=== PATIENT | female | born 1985 | race Caucasian/White ===

== ENCOUNTER 2019-10-02 23:12 | Emergency (ER) | payer OTHER ==
[2019-10-02 23:21] VITALS: BP 146/80; PULSE 69; RESP 18; TEMP 98.3
[2019-10-02] MEDS ORDERED: HYDROCORTISONE 1% CREAM 30 GM TUBE TOPICAL STA (23:39)
[2019-10-02] MEDS ORDERED: diphenhydrAMINE 25 MG CAP PO STA (23:39)
[2019-10-02] MEDS ORDERED: predniSONE 50 MG TAB PO STA (23:39)
--- NOTE | 2019-10-02 23:41 | ED ---
Skin/Abscess/FB HPI - General Chief complaint: Skin/Abscess/Foreign Body Stated complaint: Rash Time Seen by Provider: 10/02/19 23:23 Source: patient Mode of arrival: ambulatory Limitations: no limitations - History of Present Illness Initial comments: 34-year-old female patient presents to the emergency department today for evaluation of rash to the right shoulder. Patient states that she noticed that shortly after arriving to work. Patient states the rash is very itchy. Denies any pain or drainage from the lesions. States she has a similar spot on her forearm and one on her toe. She denies any new exposures. 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 She denies any fever or chills. He is taking any medication for her symptoms. Denies any lip, tongue, or throat swelling. Denies shortness of breath. Patient denies any recent rash, chest pain, abdominal pain, nausea, vomiting, diarrhea, constipation, back pain, numbness, tingling, dizziness, weakness, hematuria, dysuria, urinary urgency, urinary frequency, headache, visual changes, or any other complaints. - Related Data Previous Rx's Medication Instructions Recorded predniSONE 50 mg PO DAILY #3 tab 10/02/19 Allergies Allergy/AdvReac Type Severity Reaction Status Date / Time dimethicone Allergy Rash/Hives Verified 10/02/19 23:22 [From A and D Emollient] glycerin Allergy Rash/Hives Verified 10/02/19 23:22 [From A and D Emollient] stearyl alcohol Allergy Rash/Hives Verified 10/02/19 23:22 [From A and D Emollient] Review of Systems ROS Statement: Those systems with pertinent positive or pertinent negative responses have been documented in the HPI. ROS Other: All systems not noted in ROS Statement are negative. Past Medical History Past Medical History: No Reported History Additional Past Medical History / Comment(s): benign abd tumor History of Any Multi-Drug Resistant Organisms: None Reported Past Surgical History: Section, Tubal Ligation Additional Past Surgical History / Comment(s): d&c, only has left ovarian and fallopian tube Past Psychological History: Depression, PTSD Smoking Status: Current every day smoker Past Alcohol Use History: Occasional Past Drug Use History: Marijuana General Exam Limitations: no limitations General appearance: alert, in no apparent distress, other (This is a well- developed, well-nourished adult female patient in no acute distress. Vital signs upon presentation are temperature 98.3F, pulse 69, respirations 18, blood pressure 146/80, pulse ox 100% on room air.) ENT exam: Present: normal exam, normal oropharynx, mucous membranes moist Respiratory exam: Present: normal lung sounds bilaterally. Absent: respiratory distress, wheezes, rales, rhonchi, stridor Cardiovascular Exam: Present: regular rate, normal rhythm, normal heart sounds. Absent: systolic murmur, diastolic murmur, rubs, gallop, clicks Neurological exam: Present: alert, oriented X3, CN II-XII intact Psychiatric exam: Present: normal affect, normal mood Skin exam: Present: warm, dry, intact, normal color, rash (Cluster of erythematous wheals noted to the right shoulder, one lesion to the right forearm, one lesion to the left great toe. Patient denied petechial, nonvesicular. No drainage. Consistent with bug bite.) Course Vital Signs 10/02/19 23:16 Temperature 98.3 F Pulse Rate 69 Respiratory 18 Rate Blood Pressure 146/80 O2 Sat by Pulse 100 Oximetry Medical Decision Making - Medical Decision Making 34-year-old female patient percents to the emergency department today for evaluation of rash to the right shoulder. Physical examination did reveal eryt hematous bumps noted to the right shoulder, one to the right forearm, and one to the left great toe. Cluster of lesions are consistent with bedbug bites. She'll be given prednisone, Benadryl, and hydrocortisone cream. She is instructed to follow-up with her primary care physician for recheck in 1-2 days. Return parameters discussed in detail. She verbalizes understanding and agrees with this plan. Disposition Clinical Impression: Bed bug bite Disposition: HOME SELF-CARE Condition: Good Instructions (If sedation given, give patient instructions): Insect Bite or Sting (ED), Bed Bugs (ED) Additional Instructions: Use cream 3 times daily as needed for symptom relief. Take Benadryl every 6 hours as needed. Complete steroid prescription in full. Follow-up through primary care physician for recheck in 1-2 days. Return to the emergency depar tment immediately for any new, worsening, or concerning symptoms. Prescriptions: predniSONE 50 mg PO DAILY #3 tab Is patient prescribed a controlled substance at d/c from ED?: No Referrals: None,Stated [Primary Care Provider] - 1-2 days Time of Disposition: 23:40
== END 2019-10-03 00:05 | disposition home or self-care (01) ==
LOC: EC 23:12
DX: R21 Rash and other nonspecific skin eruption (principal); F17.200 Nicotine dependence, unspecified, uncomplicated; Z88.8 Allergy status to other drugs, medicaments and biological substances; W57.XXXA Bitten or stung by nonvenomous insect and other nonvenomous arthropods, initial encounter
CPT/HCPCS: 99282; J7512

== ENCOUNTER 2020-06-27 06:37 | Emergency (ER) | payer OTHER ==
[2020-06-27 06:45] VITALS: TEMP 98
[2020-06-27] MEDS ORDERED: ORPHENADRINE 30 MG/ML 2 ML VIAL IVP STA (06:58)
[2020-06-27] MEDS ORDERED: SODIUM CHLORIDE 0.9% 1,000 ML IV ONE (06:58)
[2020-06-27] MEDS ORDERED: ONDANSETRON 4 MG/2 ML VIAL IVP STA (06:58)
[2020-06-27] MEDS ORDERED: DEXAMETHASONE SOD PHOSPHATE 4 MG/ML 1 ML VIAL IV STA (06:59)
--- NOTE | 2020-06-27 07:03 | ED ---
Fall HPI - General Chief Complaint: Fall Stated Complaint: Fall Time Seen by Provider: 06/27/20 06:47 Source: patient, RN notes reviewed, old records reviewed Mode of arrival: ambulatory - History of Present Illness Initial Comments: 34-year-old female presents for his from today after chief complaint of head injury yesterday at 5 AM. Patient reportedly was partying and inhaling nitrous oxide. She reports that she then passed out hitting her head on cement concrete. She went to the posterior head and neck pain. She reports that she stayed up to avoid concussion symptoms for the past 24 hours. She reports that she went to bed last night 8 AM. She woke up with significant headache and nausea. Patient states that she has had no fevers. She reports that she had 2 episodes of cold sweats this morning. She complains of a headache. - Related Data Previous Rx's Medication Instructions Recorded predniSONE 50 mg PO DAILY #3 tab 10/02/19 Meclizine [Antivert] 25 mg PO BID #12 tab 06/27/20 Ondansetron Odt [Zofran Odt] 4 mg PO Q8HR PRN #12 tab 06/27/20 Allergies Allergy/AdvReac Type Severity Reaction Status Date / Time dimethicone Allergy Rash/Hives Verified 10/02/19 23:22 [From A and D Emollient] glycerin Allergy Rash/Hives Verified 10/02/19 23:22 [From A and D Emollient] stearyl alcohol Allergy Rash/Hives Verified 10/02/19 23:22 [From A and D Emollient] Review of Systems ROS Statement: Those systems with pertinent positive or pertinent negative responses have been documented in the HPI. ROS Other: All systems not noted in ROS Statement are negative. Past Medical History Past Medical History: No Reported History Additional Past Medical History / Comment(s): benign abd tumor History of Any Multi-Drug Resistant Organisms: None Reported Past Surgical History: Section, Tubal Ligation Additional Past Surgical History / Comment(s): d&c, only has left ovarian and fallopian tube Past Psychological History: Depression, PTSD Smoking Status: Never smoker Past Alcohol Use History: Occasional Past Drug Use History: Marijuana General Exam - General Exam Comments Initial Comments: 34-year-old female. Alert and oriented General appearance: alert, in no apparent distress Head exam: Present: atraumatic, normocephalic, normal inspection Eye exam: Present: normal appearance, PERRL, EOMI. Absent: scleral icterus, conjunctival injection, periorbital swelling ENT exam: Present: normal exam, mucous membranes moist Neck exam: Present: normal inspection. Absent: tenderness, meningismus, lymphadenopathy Respiratory exam: Present: normal lung sounds bilaterally. Absent: respiratory distress, wheezes, rales, rhonchi, stridor Cardiovascular Exam: Present: regular rate, normal rhythm, normal heart sounds. Absent: systolic murmur, diastolic murmur, rubs, gallop, clicks GI/Abdominal exam: Present: soft, normal bowel sounds. Absent: distended, tenderness, guarding, rebound, rigid Extremities exam: Present: normal inspection, full ROM, normal capillary refill. Absent: tenderness, pedal edema, joint swelling, calf tenderness Back exam: Present: normal inspection Neurological exam: Present: alert, oriented X3, CN II-XII intact Expanded Patient oriented to: Present: person, place, time Speech: Present: fluid speech Cranial nerves: EOM's Intact: Normal Cerebellar function: Finger to Nose: Normal Upper motor neuron: Pronator Drift: Normal Sensory exam: Upper Extremity Light Touch: Normal, Lower Extremity Light Touch: Normal Motor strength exam: RUE: 5, LUE: 5, RLE: 5, LLE: 5 Eye Response: (4) open spontaneously Motor Response: (6) obeys commands Verbal Response: (5) oriented Jansen Total: 15 Psychiatric exam: Present: normal affect, normal mood Course Vital Signs 06/27/20 06/27/20 06:41 07:36 Temperature 98 F Pulse Rate 68 69 Respiratory 18 18 Rate Blood Pressure 137/95 110/80 O2 Sat by Pulse 100 99 Oximetry Medical Decision Making - Medical Decision Making 34-year-old female presents emergency room Janneth Perez of headache and nausea one day after hitting her head. Patient reports that she struck her head on concrete. She reports a brief episode of loss consciousness last night at that time. Patient is a 72 has no acute neurological deficits. Patient was concerned because she started vomiting this morning. Patient's computed tomography scan of the rain and C-spine reviewed and negative for acute process. There is evidence of possible sinus rhythm. Patient form of this result. Advised her to follow-up with her primary care doctor for nonemergent CT of her chest. Patient is history plan will comply. Patient was diagnosed with concussion. - Radiology Data Radiology results: report reviewed CT shows no acute intracranial normality. No acute fracture malalignment of cervical spine. Prominent soft tissue density in the partially visualized a mediastinum clear present prominent thymic remnant. Recommend a contrast MRI of the chest to confirm exclude any other anterior mediastinal mass. Disposition Clinical Impression: Concussion, Cervical thymic remnant Disposition: HOME SELF-CARE Condition: Good Instructions (If sedation given, give patient instructions): Concussion (ED) Additional Instructions: Please use medication as discussed. Please follow up with family doctor if symptoms have not improved over the next two days. Follow up with CT finding of thymus. Please return to the emergency room if your symptoms increase or worsen or for any other concerns. Prescriptions: Meclizine [Antivert] 25 mg PO BID #12 tab Ondansetron Odt [Zofran Odt] 4 mg PO Q8HR PRN #12 tab PRN Reason: Nausea Is patient prescribed a controlled substance at d/c from ED?: No Referrals: Paresh Montez MD [Primary Care Provider] - 1-2 days Time of Disposition: 08:24
--- NOTE | 2020-06-27 07:34 | CT ---
EXAMINATION TYPE: CT brain betty simms con DATE OF EXAM: 06/27/2020 COMPARISON: None HISTORY: 34-year-old female pain after Fall, struck back of head CT DLP: 1597.4 mGycm Automated exposure control for dose reduction was used. Technique: Examination of the head was done in axial plane without intravenous contrast. Coronal and sagittal reconstructions performed. CT of the cervical spine was obtained in axial plane without intravenous injection of contrast mater ial. Coronal and sagittal reformatted images were obtained from the axial views for evaluation of f ractures, spinal alignment and canal. FINDINGS: Head: There is no evidence of acute intracranial hemorrhage, acute ischemic changes, mass, mass-effect, or extra-axial fluid collection. There is no effacement of cerebral sulci or basal subarachnoid cister ns. There is no hydrocephalus. There is no midline shift. Armijo-white matter distinction is preserv ed. Paranasal sinuses and mastoid air cells well pneumatized. Orbits and globes are intact. Cervical spine: Small amount of dependent debris within the mid to lower trachea. Anterior mediastinal soft tissue pa rtially visualized, refer to axial image 110. No craniocervical junction abnormalities, predental space widening, or prevertebral soft tissue swell ing. Preserved alignment of the cervical spine. No acute fracture is identified. Mild degenerative disc disease at C5-C6 with disc osteophyte complex mildly narrowing the spinal jaqueline l. Sagittal and coronal reformatted images confirm above findings. COMBINED IMPRESSION: 1. No acute intracranial abnormality seen. 2. No acute fracture or malalignment of the cervical spine. 3. Prominent soft tissue density partially visualized in the anterior mediastinum could represent pro minent thymic remnant. Recommend contrast enhanced MRI of the chest (including opposed phase T1-weigh christiano sequences) to confirm and exclude other anterior mediastinal mass.
[2020-06-27 08:56] VITALS: BP 131/81; PULSE 63; RESP 17
== END 2020-06-27 09:03 | disposition home or self-care (01) ==
LOC: EC 06:37
DX: S06.0X9A Concussion with loss of consciousness of unspecified duration, initial encounter (principal); N88.8 Other specified noninflammatory disorders of cervix uteri; Z88.8 Allergy status to other drugs, medicaments and biological substances
CPT/HCPCS: 72125; 70450; 99284; 96374; 96375 ×2; 96361; J1100; J2360; J2405

== ENCOUNTER → 2020-07-11 | Outpatient (CLI) | payer OTHER ==
--- NOTE | 2020-07-11 10:48 | MM ---
Reason for exam: clinical finding. Indicated problem(s): palpable abnormality in the right breast. Physical Findings: Nurse did not find any significant physical abnormalities on exam. MG Diagnostic Mammo w CAD HYUN Bilateral CC and MLO view(s) were taken. Spot compression MLO, spot compression CC, and LM view(s) were taken of the right breast. The breast tissue is heterogeneously dense. This may lower the sensitivity of mammography. Finding: There is a 7 mm high density, lobulated mass located 4 cm from the nipple in the anterior, middle, central position. Does not persist on additional view as distinct lesion. These results were verbally communicated with the patient and result sheet given to the patient on 07/11/20. ASSESSMENT: Incomplete: need additional imaging evaluation, BI-RAD 0 RECOMMENDATION: Ultrasound of the right breast. (palpable by doctor)
--- NOTE | 2020-07-11 10:51 | USB ---
Reason for exam: additional evaluation requested from abnormal screening. US Breast Limited RT Right limited breast ultrasound including focal area of concern, retroareolar and axilla demonstrates a 0.2 x 0.2 x 0.2cm oval lesion too small to characterize at 6 o'clock, a 0.5 x 0.7 x 0.3cm oval, lymph node at 7 o'clock, benign small lymph node, a 0.3 x 0.6 x 0.4cm oval, cystic cluster at 8 o'clock, elongated debris filled cyst and a 0.3 x 0.4 x 0.2cm oval lesion too small to characterize at 8 o'clock. These results were verbally communicated with the patient and result sheet given to the patient on 07/11/20. ASSESSMENT: Probably benign, BI-RAD 3 RECOMMENDATION: Ultrasound of the right breast in 6 months. Manage patient on a clinical basis.
== END | disposition home or self-care (01) ==
LOC: RADMAMWWP 08:12
PROVIDERS: ATTEND Family Medicine
DX: R92.8 Other abnormal and inconclusive findings on diagnostic imaging of breast (principal); N63.10 Unspecified lump in the right breast, unspecified quadrant; N64.52 Nipple discharge
CPT/HCPCS: 77066

== ENCOUNTER 2020-07-17 06:28 | Emergency (ER) | payer OTHER ==
[2020-07-17 06:36] VITALS: RESP 18
[2020-07-17] MEDS ORDERED: ORPHENADRINE 30 MG/ML 2 ML VIAL IVP STA (06:43)
[2020-07-17] MEDS ORDERED: SODIUM CHLORIDE 0.9% 1,000 ML IV STA (06:43)
--- NOTE | 2020-07-17 06:46 | ED ---
General Adult HPI - General Chief complaint: Syncope Stated complaint: Syncope Time Seen by Provider: 07/17/20 06:31 Source: patient, EMS, RN notes reviewed Mode of arrival: EMS Limitations: no limitations - History of Present Illness Initial comments: 34-year-old female presents emergency Department with chief complaint of syncopal episode. Patient states that she was getting up to get ready for work and states that she set up started walking the bathroom and passed out. She states that she felt very dizzy, lightheaded right before. Patient is unsure if she struck her head though she complains of some mild headache, head pain. Patient states that approximately 3-4 weeks ago she fell striking her head and was diagnosed with concussion. She's been dealing with dizziness and nausea in which she was placed on meclizine and Zofran. She states symptoms were getting better. She has no current chest pain, shortness breath, palpitation, nausea vomiting at this point. Patient has no focal weakness no blurred vision. - Related Data Previous Rx's Medication Instructions Recorded predniSONE 50 mg PO DAILY #3 tab 10/02/19 Meclizine [Antivert] 25 mg PO BID #12 tab 06/27/20 Ondansetron Odt [Zofran Odt] 4 mg PO Q8HR PRN #12 tab 06/27/20 Cyclobenzaprine [Flexeril] 5 mg PO TID PRN #15 tablet 07/17/20 Ibuprofen [Motrin] 600 mg PO Q8HR PRN #20 tab 07/17/20 Allergies Allergy/AdvReac Type Severity Reaction Status Date / Time dimethicone Allergy Rash/Hives Verified 07/11/20 09:11 [From A and D Emollient] glycerin Allergy Rash/Hives Verified 07/11/20 09:11 [From A and D Emollient] stearyl alcohol Allergy Rash/Hives Verified 07/11/20 09:11 [From A and D Emollient] Review of Systems ROS Statement: Those systems with pertinent positive or pertinent negative responses have been documented in the HPI. ROS Other: All systems not noted in ROS Statement are negative. Past Medical History Past Medical History: No Reported History Additional Past Medical History / Comment(s): benign abd tumor History of Any Multi-Drug Resistant Organisms: None Reported Past Surgical History: Section, Tubal Ligation Additional Past Surgical History / Comment(s): d&c, only has left ovarian and fallopian tube Past Psychological History: Anxiety, Depression, PTSD Smoking Status: Current every day smoker Past Alcohol Use History: Occasional Past Drug Use History: Marijuana General Exam Limitations: no limitations General appearance: alert, in no apparent distress Head exam: Present: atraumatic, normocephalic, normal inspection Eye exam: Present: normal appearance, PERRL, EOMI. Absent: scleral icterus, conjunctival injection, periorbital swelling ENT exam: Present: normal exam, normal oropharynx, mucous membranes moist Neck exam: Present: normal inspection, tenderness (Mild cervical paraspinal no vertebral tenderness or step-off), full ROM. Absent: meningismus, lymphadenopathy Respiratory exam: Present: normal lung sounds bilaterally. Absent: respiratory distress, wheezes, rales, rhonchi, stridor Cardiovascular Exam: Present: regular rate, normal rhythm, normal heart sounds. Absent: systolic murmur, diastolic murmur, rubs, gallop, clicks GI/Abdominal exam: Present: soft, normal bowel sounds. Absent: distended, tenderness, guarding, rebound, rigid Neurological exam: Present: alert, oriented X3, CN II-XII intact, reflexes normal. Absent: motor sensory deficit Skin exam: Present: warm, dry, intact, normal color. Absent: rash Course Vital Signs 07/17/20 06:29 Temperature 97.7 F Pulse Rate 61 Respiratory 18 Rate Blood Pressure 118/82 O2 Sat by Pulse 100 Oximetry EKG Findings - EKG Comments: EKG Findings:: EKG performed at 17:42 sinus bradycardia rate of 55 NM 140 QRS 94 QT/QTC 424/45 Medical Decision Making - Medical Decision Making 34-year-old female presented for similar episode. Patient symptoms are consistent with vasovagal. Patient had no recurrent symptoms. Labs unremarkable. Patient we discharged in stable condition. - Lab Data Result diagrams: 07/17/20 06:53 07/17/20 06:53 Lab Results 07/17/20 07/17/20 07/17/20 Range/Units 06:53 06:53 06:53 WBC 18.4 H (3.8-10.6) k/uL RBC 5.09 (3.80-5.40) m/uL Hgb 14.9 (11.4-16.0) gm/dL Hct 44.8 (34.0-46.0) % MCV 88.1 (80.0-100.0) fL MCH 29.3 (25.0-35.0) pg MCHC 33.3 (31.0-37.0) g/dL RDW 12.2 (11.5-15.5) % Plt Count 229 (150-450) k/uL Neutrophils % 79 % Lymphocytes % 14 % Monocytes % 5 % Eosinophils % 1 % Basophils % 1 % Neutrophils # 14.6 H (1.3-7.7) k/uL Lymphocytes # 2.6 (1.0-4.8) k/uL Monocytes # 0.8 (0-1.0) k/uL Eosinophils # 0.2 (0-0.7) k/uL Basophils # 0.1 (0-0.2) k/uL Sodium 138 (137-145) mmol/L Potassium 4.6 (3.5-5.1) mmol/L Chloride 109 H (98-107) mmol/L Carbon Dioxide 25 (22-30) mmol/L Anion Gap 4 mmol/L BUN 14 (7-17) mg/dL Creatinine 0.71 (0.52-1.04) mg/dL Est GFR (CKD-EPI)AfAm >90 (>60 ml/min/1.73 sqM) Est GFR (CKD-EPI)NonAf >90 (>60 ml/min/1.73 sqM) Glucose 98 (74-99) mg/dL Calcium 9.2 (8.4-10.2) mg/dL Total Bilirubin 0.4 (0.2-1.3) mg/dL AST 24 (14-36) U/L ALT 30 (4-34) U/L Alkaline Phosphatase 54 (38-126) U/L Troponin I (0.000-0.034) ng/mL Total Protein 7.1 (6.3-8.2) g/dL Albumin 4.2 (3.5-5.0) g/dL Urine Color Light Yellow Urine Appearance Clear (Clear) Urine pH 7.0 (5.0-8.0) Ur Specific [place] 1.009 (1.001-1.035) Urine Protein Negative (Negative) Urine Glucose (UA) Negative (Negative) Urine Ketones Negative (Negative) Urine Blood Negative (Negative) Urine Nitrite Negative (Negative) Urine Bilirubin Negative (Negative) Urine Urobilinogen <2.0 (<2.0) mg/dL Ur Leukocyte Esterase Negative (Negative) 07/17/20 Range/Units 06:53 WBC (3.8-10.6) k/uL RBC (3.80-5.40) m/uL Hgb (11.4-16.0) gm/dL Hct (34.0-46.0) % MCV (80.0-100.0) fL MCH (25.0-35.0) pg MCHC (31.0-37.0) g/dL RDW (11.5-15.5) % Plt Count (150-450) k/uL Neutrophils % % Lymphocytes % % Monocytes % % Eosinophils % % Basophils % % Neutrophils # (1.3-7.7) k/uL Lymphocytes # (1.0-4.8) k/uL Monocytes # (0-1.0) k/uL Eosinophils # (0-0.7) k/uL Basophils # (0-0.2) k/uL Sodium (137-145) mmol/L Potassium (3.5-5.1) mmol/L Chloride (98-107) mmol/L Carbon Dioxide (22-30) mmol/L Anion Gap mmol/L BUN (7-17) mg/dL Creatinine (0.52-1.04) mg/dL Est GFR (CKD-EPI)AfAm (>60 ml/min/1.73 sqM) Est GFR (CKD-EPI)NonAf (>60 ml/min/1.73 sqM) Glucose (74-99) mg/dL Calcium (8.4-10.2) mg/dL Total Bilirubin (0.2-1.3) mg/dL AST (14-36) U/L ALT (4-34) U/L Alkaline Phosphatase (38-126) U/L Troponin I <0.012 (0.000-0.034) ng/mL Total Protein (6.3-8.2) g/dL Albumin (3.5-5.0) g/dL Urine Color Urine Appearance (Clear) Urine pH (5.0-8.0) Ur Specific [place] (1.001-1.035) Urine Protein (Negative) Urine Glucose (UA) (Negative) Urine Ketones (Negative) Urine Blood (Negative) Urine Nitrite (Negative) Urine Bilirubin (Negative) Urine Urobilinogen (<2.0) mg/dL Ur Leukocyte Esterase (Negative) Disposition Clinical Impression: Vasovagal syncope, Cervical strain Disposition: HOME SELF-CARE Condition: Stable Instructions (If sedation given, give patient instructions): Syncope (ED) Additional Instructions: Please return to the Emergency Department if symptoms worsen or any other concerns. Prescriptions: Cyclobenzaprine [Flexeril] 5 mg PO TID PRN #15 tablet PRN Reason: Muscle Spasm Ibuprofen [Motrin] 600 mg PO Q8HR PRN #20 tab PRN Reason: Pain Is patient prescribed a controlled substance at d/c from ED?: No Referrals: Paresh Montez MD [Primary Care Provider] - 1-2 days Enrrique Martinez DO [STAFF PHYSICIAN] - 1-2 days Jose Miguel Garcia MD [REFERRING] - 1-2 days
[2020-07-17 07:17] LABS: Basophils # (A) 0.1 k/uL (0-0.2); Basophils % (A) 1 %; Eosinophils # (A) 0.2 k/uL (0-0.7); Eosinophils % (A) 1 %; HCT 44.8 % (34.0-46.0); HGB 14.9 gm/dL (11.4-16.0); Lymphocytes # (A) 2.6 k/uL (1.0-4.8); Lymphocytes % (A) 14 %; MCH 29.3 pg (25.0-35.0); MCHC 33.3 g/dL (31.0-37.0); MCV 88.1 fL (80.0-100.0); Mean Platelet Volume 8.3; Monocytes # (A) 0.8 k/uL (0-1.0); Monocytes % (A) 5 %; Neutrophils # (A) 14.6 k/uL (1.3-7.7); Neutrophils % (A) 79 %; Platelet Count 229 k/uL (150-450); RBC 5.09 m/uL (3.80-5.40); RDW 12.2 % (11.5-15.5); WBC 18.4 k/uL (3.8-10.6)
--- NOTE | 2020-07-17 07:28 | CT ---
EXAMINATION TYPE: CT brain betty acharya DATE OF EXAM: 07/17/2020 COMPARISON: None HISTORY: Syncope CT DLP: 1396.[address] Brain: Unenhanced CT of the brain was performed. The ventricles, basal cisterns and sulci overlying the cerebral convexities demonstrate a normal appe arance. There is no evidence for intracranial hemorrhage or sulcal effacement. No mass effects are seen. If symptoms persist consider MRI. Osseous calvarium is intact. IMPRESSION: No acute intracranial process CT Cervical Spine: Unenhanced CT of the cervical spine was performed with bone and soft tissue window settings submitted . Coronal and sagittal reconstruction is obtained. There is normal alignment and prevertebral soft tissues. I do not see evidence for fracture or sublu xation. No significant degenerative changes are present. The lung apices are clear. IMPRESSION: No evidence for acute fracture or subluxation of the cervical spine.
[2020-07-17 07:32] LABS: ALT 30 U/L (4-34); AST 24 U/L (14-36); African American GFR (CKD) >90 (>60 ml/min/1.73 sqM); Albumin 4.2 g/dL (3.5-5.0); Alkaline Phosphatase 54 U/L (38-126); Anion Gap 4 mmol/L; Blood Urea Nitrogen 14 mg/dL (7-17); Calcium 9.2 mg/dL (8.4-10.2); Carbon Dioxide 25 mmol/L (22-30); Chloride 109 mmol/L (98-107); Glucose 98 mg/dL (74-99); Non-African American GFR(CKD) >90 (>60 ml/min/1.73 sqM); Potassium 4.6 mmol/L (3.5-5.1); Sodium 138 mmol/L (137-145); Total Bilirubin 0.4 mg/dL (0.2-1.3); Total Protein 7.1 g/dL (6.3-8.2)
[2020-07-17] MEDS ORDERED: KETOROLAC 15 MG/ML 1 ML VIAL IVP STA (08:38)
[2020-07-17 08:50] LABS: Appearance,Urine Clear (Clear); Bilirubin,Urine Negative (Negative); Blood,Urine Negative (Negative); Color,Urine Light Yellow; Glucose,Urine (UA) Negative (Negative); Ketones,Urine Negative (Negative); Leukocyte Esterase,Urine Negative (Negative); Nitrite,Urine Negative (Negative); Protein,Urine Negative (Negative); Specific Gravity,Urine 1.009 (1.001-1.035); Urobilinogen,Urine <2.0 mg/dL (<2.0)
[2020-07-17 09:47] VITALS: BP 130/85; PULSE 75; TEMP 98.1
== END 2020-07-17 09:50 | disposition home or self-care (01) ==
LOC: EC 06:28
DX: R55 Syncope and collapse (principal); S16.1XXA Strain of muscle, fascia and tendon at neck level, initial encounter; F17.200 Nicotine dependence, unspecified, uncomplicated; Z88.8 Allergy status to other drugs, medicaments and biological substances; X58.XXXA Exposure to other specified factors, initial encounter
CPT/HCPCS: 36415; 93005; 80053; 84484; 85025; 81003; 72125; 70450; 99285; 96374; 96375; 96361; J2360; J1885

== ENCOUNTER → 2020-08-31 | Outpatient (CLI) | payer OTHER ==
[2020-08-31 09:41] VITALS: BP 138/93; PULSE 96; RESP 18; TEMP 98
--- NOTE | 2020-09-01 19:37 | P.PAINCN ---
History of Present Illness - Reason for Consult Consult date: 08/31/20 - History of Present Illness This is a 55 years old female with a chronic history of severe headache started 3 months ago after she fell on her head, after she lost her consciousness, and from that time on his started having severe headache associated with some neck pain is more prominent on the left side, patient reported that she had also some numbness and tingling sensation in the upper extremity mainly in the hand, the headache and neck pain is constant and increases with any neck movement, patient had computed tomography scan of the head and cervical spine did not show any significant etiology to explain her symptoms, he was evaluated by neurology consult services Dr. Garcia and she was diagnosed with occipital neuralgia and she was referred to our pain clinic for occipital nerve block, she denies any motor or sensory deficit she denies any change in the bowel movements or urination she denies any fever or night sweats Past Medical History Past Medical History: Skin Disorder Additional Past Medical History / Comment(s): hx migraines/concussion 06/28, preeclampsia with , psriasis, History of Any Multi-Drug Resistant Organisms: None Reported Past Surgical History: Bowel Resection, Section, Tubal Ligation, Uterine Ablation Additional Past Surgical History / Comment(s): d&c, removal of moles, bowel surgery after puncture during a procedure, rt fallopain tube and overy removed, Past Anesthesia/Blood Transfusion Reactions: No Reported Reaction Past Psychological History: Anxiety, Depression, PTSD Smoking Status: Current every day smoker Past Alcohol Use History: Rare Additional Past Alcohol Use History / Comment(s): smokes 1 PPD sincea age 15 Past Drug Use History: Marijuana Additional Drug Use History / Comment(s): daily - Past Family History Mother Family Medical History: No Reported History Medications and Allergies Home Medications Medication Instructions Recorded Confirmed Type Ondansetron Odt [Zofran Odt] 4 mg PO Q8HR PRN #12 tab 06/27/20 08/30/20 Rx Ergocalciferol [Vitamin D2] 50,000 unit PO QMONTHLY 08/30/20 08/30/20 History Fish Oil(Dose Unkown) 1 tab PO BID 08/30/20 08/30/20 History Ibuprofen [Motrin] 800 mg PO QID PRN 08/30/20 08/30/20 History Allergies Allergy/AdvReac Type Severity Reaction Status Date / Time dimethicone Allergy Rash/Hives Verified 08/30/20 14:46 [From A and D Emollient] glycerin Allergy Rash/Hives Verified 08/30/20 14:46 [From A and D Emollient] stearyl alcohol Allergy Rash/Hives Verified 08/30/20 14:46 [From A and D Emollient] Physical Exam Vitals: Vital Signs Temp Pulse Resp BP Pulse Ox 08/31/20 09:33 98.0 F 96 18 138/93 97 Physical Examinations : -Constitutiona : Cooperative , not in acute distress . -HEENT : nech : supple , no Lymphadenopathy , normal thyroid size . : eyes : no ptosis , no icterus, no photophobia . - neurologic : Cranial nerve II to XII intact , no focal neurological deffecit . -psychatric : alert , oriented X 3 , appropriate affect , intact judgment and insight . -Lymphatic : no Lymphadenopathy . - musculoskeltal : Cervical Spine motor stregnth in the deltoid and biceps, normal right side , normal Left side motor stregnth biceps and the wrist extensors normal right side ,normal left side . motor stregnth in the triceps muscle . normal Right side , normal Left side deep tendon reflexes normal at the biceps , normal at Brachioradialis , normal at triceps. cervical facet loading test= Positive Bilaterally Severe tenderness over the occipital nerve bilaterally more prominent on the left side Lumber spine moter stegnth lower extremities ,thigh and legs 5/5 Right side , 5/5 Left side Results Comments: Computed tomography scan of the brain and cervical spine reviewed and it did not show any significant etiology Assessment and Plan Plan: Assessment and plan=1-occipital neuralgia bilaterally is more prominent on the left side. 2-cervicogenic headache. 3-cervical spondylosis with cervical facet arthropathy without myelopath she would be good candidate to have occipital nerve block bilaterally, procedure risk and benefit and alternatives discussed with the patient she agreed with the preceding Time with Patient: Greater than 30 PQRS Measure Charge Sheet Measure #130: Documentation of Current Meds in Medical Chart: Patient's medications documented in chart Measure #226: Tobacco Use: Screen & Cessation Intervention: Pt screened for tobacco use AND intervention given Measure #111: Pneumonia Vaccination: Pneumococcal vaccine NOT administered or previously given Measure #47: Advance Care Plan: Advance care planning discussed & documented, pt chose/unable to give Measure #412: Opioid Treatment Agreement: No documentation of signed opioid treatment agreement Measure #408: Opioid Therapy Follow-up Evaluation: Patient had NO f/u eval minimum every 3 months during opioid therapy Measure #317: Preventitive Care & Scrn High Bld Press & F/U: Normal blood pressure, f/u not required Measure #128: Body Mass Index (BMI) Screening & Follow-up: BMI documented ABOVE normal parameters - f/u documented Measure #131: Pain Assessment & Follow-up: Pain positive & plan documented, Follow-up scheduled Measure #431: Unhealthy Alcohol Use Preventative Care & Scrn: Patient not identified as an unhealthy alcohol user PQRS Narrative: Smoking Status Current every day smoker Blood Pressure 138/93 Pain Intensity [Neck] 4 Scale Used Numeric (1 - 10) Hx Alcohol Use (MH) Yes Home Medications: Ambulatory Orders Ondansetron Odt [Zofran Odt] 4 mg PO Q8HR PRN #12 tab 06/27/20 Ergocalciferol [Vitamin D2] 50,000 unit PO QMONTHLY 08/30/20 Fish Oil(Dose Unkown) 1 tab PO BID 08/30/20 Ibuprofen [Motrin] 800 mg PO QID PRN 08/30/20
== END | disposition home or self-care (01) ==
LOC: PNWHC3 09:12
PROVIDERS: ATTEND Specialist
DX: M54.81 Occipital neuralgia (principal); R51.9 Headache, unspecified; M47.812 Spondylosis without myelopathy or radiculopathy, cervical region; F17.200 Nicotine dependence, unspecified, uncomplicated; Z79.891 Long term (current) use of opiate analgesic; Z79.899 Other long term (current) drug therapy; Z88.8 Allergy status to other drugs, medicaments and biological substances; Z91.048 Other nonmedicinal substance allergy status
CPT/HCPCS: 99211

== ENCOUNTER → 2020-09-23 | Day surgery (SDC) | payer OTHER ==
[2020-09-19 12:32] VITALS: BMI 31.8
[~2020-09-23] MED LIST: DEXAMETHASONE SOD PHOSPHATE 4 MG/ML 1 ML VIAL IV ONE; HYDROmorphone 0.5 MG/0.5 ML SYRINGE IVP PRN; LACTATED RINGERS 1,000 ML IV SCH; ONDANSETRON 4 MG/2 ML VIAL IVP ONE
== END ==
LOC: ORPAIN 13:05
PROVIDERS: ATTEND Specialist
DX: M54.81 Occipital neuralgia (principal); Z53.8 Procedure and treatment not carried out for other reasons

== ENCOUNTER 2020-10-04 09:01 | Day surgery (SDC) | payer OTHER ==
[2020-09-29 16:05] VITALS: BMI 33.8
[~2020-10-04 09:01] MED LIST changes: -DEXAMETHASONE SOD PHOSPHATE 4 MG/ML 1 ML VIAL IV ONE; -HYDROmorphone 0.5 MG/0.5 ML SYRINGE IVP PRN; -ONDANSETRON 4 MG/2 ML VIAL IVP ONE
[2020-10-04 09:26] VITALS: RESP 16; TEMP 98.4
[2020-10-04] MEDS ORDERED: LIDOCAINE 1% (10MG/ML) FOR IV START INTRADERMA ONE (09:32)
[2020-10-04] MEDS ORDERED: MIDAZOLAM 2 MG/2 ML VIAL ONE (09:37)
[2020-10-04] MEDS ORDERED: fentaNYL (PF) 50 MCG/ML 2 ML AMP ONE (09:37)
[2020-10-04] MEDS ORDERED: ROPIVACAINE 5MG/ML 20ML VIAL ONE (09:37)
[2020-10-04] MEDS ORDERED: methylPREDNISolone ACETATE 40 MG/ML 1 ML VIAL ONE (09:37)
--- NOTE | 2020-10-04 09:47 | P.PCN ---
Date of Procedure: 10/04/20 Procedure(s) Performed: Preoperative diagnoses= 1- Greater occipital neuralgia. 2-cervicogenic headache. 3-cervical spondylosis Postoperative diagnoses= same as preoperative diagnosis. Procedure= Bilateral Greater occipital nerve block. Anesthesia= moderate sedation with Versed 2 mg and fentanyl 100 micrograms and local infiltration with lidocaine 1% 4 ml Estimated blood loss=minimal. Procedure indication= the patient had a history of severe chronic neck pain ,and headache, diagnosed with occipital neuralgia exam was positive for severe tenderness over the occipital nerve bilaterally, she will be a good candidate occipital nerve block, patient failed conservative management Procedure description= the patient was seen and identified in the preoperative holding area, risks and benefits and alternative of the procedure and possible complications discussed with the patient, and he agreed with the preceding, patient signed the consent, an IV was started, and vital signs were monitored and were stable throughout the procedure, patient was placed in the sitting position or table and the neck area was prepped and draped with a sterile fashion, vital signs were closely monitored during the procedure, 25-gauge ne edle advanced 1 inch lateral to the occipital protuberance on the right side, at the location of the right occipital nerve , then after negative aspiration for heme and CSF and there was no paresthesia during the injection, 6 ml of Robivacaine 0.5% and 20 mg of Depo-Medrol injected after negative aspiration, the needle removed, and the entire same procedure was repeated for the left Greater occipital nerve. Patient tolerated the procedure well without any complication, The patient returned to supine position after the back was cleaned and a Band- Aid applied, the patient transported to recovery room in stable condition and he was monitored for 30 minutes before he was discharged home and then patient was reexamined before going home and patient was discharged in stable condition and patient will follow up with the pain clinic in a few weeks.
[2020-10-04 10:07] VITALS: BP 119/73; PULSE 71
[2020-10-04] MEDS ORDERED: IV FLUID CONTINUATION 1,000 ML IV ONE (10:07)
== END 2020-10-04 10:22 | disposition home or self-care (01) ==
LOC: ORPAIN 09:01
PROVIDERS: ATTEND Specialist
DX: G89.29 Other chronic pain (principal); M54.81 Occipital neuralgia; R51.9 Headache, unspecified; M47.892 Other spondylosis, cervical region; Z88.8 Allergy status to other drugs, medicaments and biological substances
CPT/HCPCS: 81025; 64405; J2250; J1030; J3010; J2795

== ENCOUNTER 2020-11-22 07:02 | Day surgery (SDC) | payer OTHER ==
[2020-11-21 09:34] VITALS: BMI 33.6
[2020-11-22 07:33] VITALS: TEMP 98.4
[2020-11-22] MEDS ORDERED: LACTATED RINGERS 1,000 ML IV ONE (07:40)
[2020-11-22] MEDS ORDERED: ROPIVACAINE 5MG/ML 20ML VIAL ONE (07:55)
[2020-11-22] MEDS ORDERED: MIDAZOLAM 2 MG/2 ML VIAL ONE (07:55)
[2020-11-22] MEDS ORDERED: methylPREDNISolone ACETATE 40 MG/ML 1 ML VIAL ONE (07:55)
[2020-11-22] MEDS ORDERED: IV FLUID CONTINUATION 1,000 ML IV ONE (08:11)
[2020-11-22 08:14] VITALS: RESP 18
[2020-11-22] MEDS ORDERED: LACTATED RINGERS 1,000 ML IV SCH (08:15)
[2020-11-22 08:31] VITALS: BP 122/80; PULSE 64
--- NOTE | 2020-11-22 09:03 | P.PCN ---
Date of Procedure: 11/22/20 Preoperative Diagnosis: Bilateral occipital neuralgia Postoperative Diagnosis: The bilateral occipital neuralgia Procedure(s) Performed: Bilateral greater occipital lateral block Anesthesia: MAC Surgeon: Manjit Puga Estimated Blood Loss (ml): 0 IV fluids (ml): 100 Urine output (ml): 0 Pathology: none sent Condition: stable Disposition: PACU (Indications for Procedure: The patient has been suffering from chronic headache.) Description of Procedure: Indications for Procedure: The patient has been suffering from chronic headache. Procedure and Findings: The patient was seen and examined and written informed consent was obtained after explaining the risks, benefits and alternative of the procedure to the patient. As per physician request for anxiety IV was started in the preoperative holding area for sedation. The patient was positioned in the sitting position with the head slightly flexed and forehead rested on a pillow. By palpation, the external occipital protuberance and mastoid process were identified and mid point in between was located. The target point for greater occipital nerve was just medial to the occipital artery pulsation. The skin preparation was done with ChloraPrep X2 and sterile technique was observed throughout the procedure. A 25-guage, 1.5 inch needle was used for the procedure. A 25-gauge 1.5 inch needle was placed vertically downward, bony contact was obtained, negative aspiration was confirmed and 5 ml solution was injected. The needle was redirected little medially and laterally in a fanning fashion and addition medication was injected after negative aspiration. For each greater occipital nerve 5 ml of block solution used. The block solution containing 0.5% preservative-free bupivacaine 9 mL +40 MG of Depo-Medrol. The needle was removed, needle puncture sites were cleaned and pressure was applied. The patient tolerated the procedure very well.
== END 2020-11-22 08:43 ==
LOC: ORPAIN 07:02
DX: M54.81 Occipital neuralgia (principal); Z88.8 Allergy status to other drugs, medicaments and biological substances
CPT/HCPCS: 81025; 64405; J2250; J1030; J2795

== ENCOUNTER → 2024-10-09 | Outpatient (CLI) | payer OTHER ==
[2024-10-09 11:22] LABS: ALT 49 U/L (8-44); AST 29 U/L (13-35); Albumin 4.2 g/dL (3.8-4.9); Albumin/Globulin Ratio 1.56 Ratio (1.60-3.17); Alkaline Phosphatase 82 U/L (41-126); Blood Urea Nitrogen 14.7 mg/dL (9.0-27.0); Calcium 9.2 mg/dL (8.7-10.3); Carbon Dioxide 25.7 mmol/L (21.6-31.8); Chloride 106 mmol/L (96-109); Chol/HDL Ratio 4.27 Ratio; Globulin 2.7 g/dL (1.6-3.3); Glucose 115 mg/dL (70-110); LDL Cholesterol,Calculated 113.2 mg/dL (0.0-131.0); Potassium 4.4 mmol/L (3.5-5.5); Sodium 140 mmol/L (135-145); T4, Free (Free Thyroxine) 1.07 ng/dL (0.80-1.80); Total Bilirubin 0.6 mg/dL (0.3-1.2); Total Protein 6.9 g/dL (6.2-8.2); Uric Acid 4.8 mg/dL (2.9-7.7); VLDL Calculation 16.18 mg/dL (5.00-40.00)
[2024-10-09 13:45] LABS: Basophils # (A) 0.06 X 10*3/uL (0.00-0.10); Basophils % (A) 0.5 %; Eosinophils # (A) 0.34 X 10*3/uL (0.04-0.35); HCT 41.7 % (37.2-46.3); HGB 13.4 g/dL (12.0-15.0); Lymphocytes # (A) 2.53 X 10*3/uL (0.90-5.00); Lymphocytes % (A) 22.3 %; MCH 26.6 pg (27.0-32.0); MCHC 32.1 g/dL (32.0-37.0); MCV 82.7 FL (80.0-97.0); Monocytes # (A) 0.84 X 10*3/uL (0.20-1.00); Monocytes % (A) 7.4 %; NRBC Per 100 WBC 0 X 10*3/uL (0.00-0.01); Neutrophils # (A) 7.54 X 10*3/uL (1.80-7.70); Neutrophils % (A) 66.4 %; Platelet Count 298 X 10*3/uL (140-440); RBC 5.04 X 10*6/uL (4.10-5.20); WBC 11.36 X 10*3/uL (4.50-10.00)
== END | disposition home or self-care (01) ==
LOC: LABWHC1 08:03
PROVIDERS: ATTEND Physician Assistant
DX: Z00.00 Encounter for general adult medical examination without abnormal findings (principal); Z13.220 Encounter for screening for lipoid disorders; E55.9 Vitamin D deficiency, unspecified; E78.5 Hyperlipidemia, unspecified; R53.83 Other fatigue
CPT/HCPCS: 36415; 80053; 80061; 82306; 84439; 84443; 84550; 85025